=== PATIENT | female | born 1980 | race American Indian/Alaskan Native ===

== ENCOUNTER 2019-01-03 22:04 | Emergency (ER) | payer BC, OTHER ==
--- NOTE | 2019-01-03 22:18 | Emergency Department Report ---
Blank Doc - Documentation Documentation: This is a 38-year-old female that presents with vaginal bleeding with some left sided pelvic pain. Patient denies any GI bleeding. This initial assessment/diagnostic orders/clinical plan/treatment(s) is/are subject to change based on patient's health status, clinical progression and re- assessment by fellow clinical providers in the ED. Further treatment and workup at subsequent clinical providers discretion. Patient/guardians urged not to elope from the ED as their condition may be serious if not clinically assessed and managed. Initial orders include: 1- Patient sent to [facility] for further evaluation and treatment 2- labs 3- UA
[2019-01-03 23:18] LABS: Basophils # (Auto) 0.1 K/mm3 (0.0-0.1); Basophils % (Auto) 1.3 % (0.0-1.8); Eosinophils # (Auto) 0.3 K/mm3 (0.0-0.4); Eosinophils % (Auto) 5.4 % (0.0-4.3); Hematocrit 35.8 % (30.3-42.9); Hemoglobin 12.1 gm/dl (10.1-14.3); Lymphocytes # (Auto) 2.4 K/mm3 (1.2-5.4); Lymphocytes % (Auto) 47.7 % (13.4-35.0); Mean Corpuscular HGB Conc 34 % (30-34); Mean Corpuscular Hemoglobin 33 pg (28-32); Mean Corpuscular Volume 97 fl (79-97); Monocytes # (Auto) 0.4 K/mm3 (0.0-0.8); Monocytes % (Auto) 7.9 % (0.0-7.3); Platelet Count 290 K/mm3 (140-440); Red Blood Count 3.68 M/mm3 (3.65-5.03)
[2019-01-03 23:44] LABS: Bilirubin,Urine NEG (Negative); Blood,Urine LG (Negative); Color,Urine Yellow (Yellow); Mucus,Urine 1+ /HPF; Protein,Urine <15 mg/dL mg/dL (Negative); Urobilinogen,Urine < 2.0 mg/dL (<2.0)
[2019-01-03 23:50] LABS: BUN/Creatinine Ratio 12; Blood Urea Nitrogen 7 mg/dL (7-17); Calcium 9.1 mg/dL (8.4-10.2); Hemolysis Index 6
[2019-01-04 00:48] LABS: HCG Qualitative,Urine Negative (Negative)
--- NOTE | 2019-01-04 05:29 | Cat Scan Report ---
PROCEDURE: CT ABDOMEN PELVIS WO CON TECHNIQUE: CT imaging is obtained through the abdomen and pelvis without contrast. Transaxial, coron al and sagittal reformations are provided HISTORY: abd pain COMPARISONS: None FINDINGS: Imaged intrathoracic contents are unremarkable. Kidneys are normal in size, axis and position. No hydronephrosis or nephrolithiasis. The ureters are normal in course and caliber. No stones are seen within the urinary bladder. Anteverted uterus. Small volume of free fluid in the pelvis is likely physiologic. Pelvic phleboliths are noted. The liver, gallbladder, pancreas, spleen, and adrenal glands demonstrate an unremarkable noncontrast appearance. Hollow enteric organs are normal in course and caliber. Appendix is normal. No intra-abdominal free a ir/fluid or lymphadenopathy. Aorta is normal in course and caliber. Superficial soft tissues are remarkable for umbilical jewelry and numerous soft tissue lobules with s urrounding stranding in the low back and buttocks. No acute or aggressive appearing skeletal findings . IMPRESSION: No acute findings in the abdomen or pelvis. Numerous soft tissue lobules in the low back and buttocks may be due to injections. Clinical correlat ion is requested. This document is electronically signed by Josiah Harley MD., January 04 2019 05:27:08 AM ET
--- NOTE | 2019-01-04 06:29 | Emergency Department Report ---
ED Female HPI - General Chief complaint: GI Bleed Stated complaint: BLOOD IN STOOL Time Seen by Provider: 01/03/19 22:16 Source: patient Mode of arrival: Ambulatory Limitations: No Limitations - History of Present Illness Initial comments: Patient is a 38-year-old emergency room who presents for vaginal bleeding her last menstrual cycle was 11/16/2018 patient states she does have irregular cycles she is not sexually active no concern for STD denies history of fibroids or ovarian cyst but endorses that her mother had fibroids. His fever chills [place] vomiting 4 MD Complaint: vaginal bleeding Onset/Timin -: days(s) Radiation: non-radiating Severity scale (0 -10): 5 Consistency: constant Improves with: none Worsens with: none Are you Now?: No Last Menstrual Period: 11/16/18 EDC: 08/23/19 Associated Symptoms: vaginal bleeding - Related Data Sexually active: No Previous Rx's Medication Instructions Recorded Last Taken Type Cyclobenzaprine [Flexeril] 10 mg PO TID PRN #12 tablet 08/20/18 Unknown Rx Ibuprofen [Motrin] 600 mg PO Q8H PRN #12 tablet 08/20/18 Unknown Rx Tramadol HCl [Ultram] 50 mg PO Q6H PRN #12 tablet 01/04/19 Unknown Rx Allergies Allergy/AdvReac Type Severity Reaction Status Date / Time No Known Allergies Allergy Unverified 08/20/18 15:34 ED Review of Systems ROS: Stated complaint: BLOOD IN STOOL Other details as noted in HPI Constitutional: denies: chills, fever Eyes: denies: eye pain, eye discharge, vision change ENT: denies: ear pain, throat pain Respiratory: denies: cough, shortness of breath, wheezing Cardiovascular: denies: chest pain, palpitations Endocrine: no symptoms reported Gastrointestinal: denies: abdominal pain, nausea, vomiting, diarrhea Genitourinary: abnormal menses, other (vaginal bleeding 3 pads daily ). denies: urgency, dysuria, frequency, hematuria, discharge Musculoskeletal: back pain. denies: joint swelling, arthralgia Skin: denies: rash, lesions Neurological: denies: headache, weakness, paresthesias Psychiatric: denies: anxiety, depression Hematological/Lymphatic: denies: easy bleeding, easy bruising ED Past Medical Hx - Past Medical History Previous Medical History?: Yes Hx Arthritis: Yes Additional medical history: bulging disc - Surgical History Past Surgical History?: Yes Hx Breast Surgery: Yes - Social History Smoking Status: Never Smoker Substance Use Type: None - Medications Home Medications: Home Medications Medication Instructions Recorded Confirmed Last Taken Type Cyclobenzaprine [Flexeril] 10 mg PO TID PRN #12 tablet 08/20/18 Unknown Rx Ibuprofen [Motrin] 600 mg PO Q8H PRN #12 tablet 08/20/18 Unknown Rx Tramadol HCl [Ultram] 50 mg PO Q6H PRN #12 tablet 01/04/19 Unknown Rx ED Physical Exam - General Limitations: No Limitations General appearance: alert, in no apparent distress - Eye Eye exam: Present: normal appearance, PERRL, EOMI Pupils: Present: irregular - ENT ENT exam: Present: mucous membranes moist - Neck Neck exam: Present: normal inspection, full ROM. Absent: lymphadenopathy - Respiratory Respiratory exam: Present: normal lung sounds bilaterally. Absent: respiratory distress, wheezes, stridor, chest wall tenderness - Cardiovascular Cardiovascular Exam: Present: regular rate, normal heart sounds - GI/Abdominal GI/Abdominal exam: Present: soft, normal bowel sounds. Absent: distended, t enderness, rebound, mass, bruit, hernia - Rectal Rectal exam: Present: deferred - External exam: Present: other (esxam deferred per patient ) - Extremities Exam Extremities exam: Present: normal inspection, full ROM, normal capillary refill. Absent: tenderness, pedal edema, joint swelling, calf tenderness - Back Exam Back exam: Present: normal inspection, full ROM, tenderness. Absent: CVA tenderness (R), CVA tenderness (L), muscle spasm, paraspinal tenderness, vertebral tenderness, rash noted - Neurological Exam Neurological exam: Present: alert, oriented X3, CN II-XII intact, normal gait, reflexes normal. Absent: motor sensory deficit - Psychiatric Psychiatric exam: Present: normal affect, normal mood - Skin Skin exam: Present: warm, dry, intact, normal color. Absent: rash ED Course Vital Signs 01/03/19 01/04/19 22:17 03:27 Temperature 97.9 F 97.6 F Pulse Rate 71 58 L Respiratory 12 16 Rate Blood Pressure 125/95 147/101 O2 Sat by Pulse 100 100 Oximetry ED Medical Decision Making - Lab Data Result diagrams: 01/03/19 22:37 01/03/19 22:37 Labs 01/03/19 01/03/19 01/03/19 22:37 22:37 22:37 WBC 5.1 RBC 3.68 Hgb 12.1 Hct 35.8 MCV 97 MCH 33 H MCHC 34 RDW 13.0 L Plt Count 290 Lymph % (Auto) 47.7 H [place] % (Auto) 7.9 H Eos % (Auto) 5.4 H Baso % (Auto) 1.3 Lymph # 2.4 [place] # 0.4 Eos # 0.3 Baso # 0.1 Seg Neutrophils % 37.7 L Seg Neutrophils # 1.9 Sodium 142 Potassium 3.9 Chloride 106.0 Carbon Dioxide 25 Anion Gap 15 BUN 7 Creatinine 0.6 L Estimated GFR > 60 BUN/Creatinine Ratio 12 Glucose 85 Calcium 9.1 Urine Color Yellow Urine Turbidity Slightly-cloudy Urine pH 5.0 Ur Specific [place] 1.015 Urine Protein <15 mg/dl Urine Glucose (UA) Neg Urine Ketones Neg Urine Blood Lg Urine Nitrite Neg Urine Bilirubin Neg Urine Urobilinogen < 2.0 Ur Leukocyte Esterase Neg Urine WBC (Auto) 3.0 Urine RBC (Auto) 9.0 U Epithel Cells (Auto) 10.0 Urine Mucus 1+ Urine HCG, Qual Negative - Radiology Data Radiology results: report reviewed, image reviewed COMPARISONS: None FINDINGS: Imaged intrathoracic contents are unremarkable. Kidneys are normal in size, axis and position. No hydronephrosis or nephrolithiasis. The ureters are normal in course and caliber. No stones are seen within the urinary bladder. Anteverted uterus. Small volume of free fluid in the pelvis is likely physiologic. Pelvic phleboliths are noted. The liver, gallbladder, pancreas, spleen, and adrenal glands demonstrate an unremarkable noncontrast appearance. Hollow enteric organs are normal in course and caliber. Appendix is normal. No intra-abdominal free air/fluid or lymphadenopathy. Aorta is normal in course and caliber. Superficial soft tissues are remarkable for umbilical jewelry and numerous soft tissue lobules with surrounding stranding in the low back and buttocks. No acute or aggressive appearing skeletal findings. IMPRESSION: No acute findings in the abdomen or pelvis. Numerous soft tissue lobules in the low back and buttocks may be due to injections. Clinical correlation is requested. This document is electronically signed by Josiah Roman MD., January 04 2019 05:27:08 AM ET Transcribed By: MB Dictated By: JOSIAH ROMAN MD Electronically Authenticated By: JOSIAH ROMAN MD Signed Date/Time: 01/04/1929 DD/ [id number] TD/TT: 01/04/1916 - Medical Decision Making Patient advises symptoms are resolving CT abdomen and pelvis is normal no acute abnormalities UA says some blood nitrates and leukocytes no increased white cells and occasional nausea vomiting there is no fever or chills there is no abnormal vaginal discharge this is likely dysmenorrhea plan Ultram when nece ssary pain following ENVIRONMENTAL SYSTEMS COORDINATOR in 2 days patient given referral to ENVIRONMENTAL SYSTEMS COORDINATOR doctor Geo Ruiz patient will call today to confirm appointment patient DC'd to home in stable condition at this time Critical care attestation.: If time is entered above; I have spent that time in minutes in the direct care of this critically ill patient, excluding procedure time. ED Disposition Clinical Impression: Dysmenorrhea Disposition: DC-01 TO HOME OR SELFCARE Is pt being admited?: No Does the pt Need Aspirin: No Condition: Stable Instructions: Dysmenorrhea (ED) Prescriptions: Tramadol HCl [Ultram] 50 mg PO Q6H PRN #12 tablet PRN Reason: pain Referrals: LAZARUS MARSH MD [Primary Care Provider] - 3-5 Days Forms: Accompanied Note, Work/School Release Form(ED) Time of Disposition: 06:36
[2019-01-04 06:56] VITALS: BP 135/87
== END 2019-01-04 06:55 | disposition home or self-care (01) ==
LOC: ED 22:04
DX: N94.6 Dysmenorrhea, unspecified (principal); M19.90 Unspecified osteoarthritis, unspecified site
CPT/HCPCS: 36415; 74176; 80048; 81001; 81025; 85025